=== PATIENT | male | born 2000 | race Caucasian/White ===

== ENCOUNTER 2022-01-10 10:32 | Observation (INO) | payer BC ==
[2022-01-10] MEDS ORDERED: SODIUM CHLORIDE 0.9% 500 ML 500 ML IV STA (11:11)
[2022-01-10] MEDS ORDERED: ASPIRIN 81 MG PO STA (11:11)
[2022-01-10 11:29] LABS: Basophils % (A) 0 %; Eosinophils # (A) 0.2 k/uL (0-0.7); Eosinophils % (A) 4 %; HCT 45.7 % (39.0-53.0); HGB 15.6 gm/dL (13.0-17.5); Lymphocytes # (A) 1.3 k/uL (1.0-4.8); Lymphocytes % (A) 27 %; MCH 32.6 pg (25.0-35.0); MCHC 34.2 g/dL (31.0-37.0); MCV 95.1 fL (80.0-100.0); Monocytes # (A) 0.3 k/uL (0-1.0); Monocytes % (A) 6 %; Neutrophils # (A) 2.9 k/uL (1.3-7.7); Neutrophils % (A) 61 %; Platelet Count 159 k/uL (150-450); RBC 4.81 m/uL (4.30-5.90); RDW 12.9 % (11.5-15.5); WBC 4.8 k/uL (3.8-10.6)
[2022-01-10 11:45] LABS: Partial Thromboplastin Time 24.3 sec (22.0-30.0); Prothrombin Time 10.6 sec (9.0-12.0)
[2022-01-10 11:53] LABS: ALT 38 U/L (4-49); AST 37 U/L (17-59); African American GFR (CKD) >90 (>60 ml/min/1.73 sqM); Albumin 4.6 g/dL (3.5-5.0); Alkaline Phosphatase 56 U/L (38-126); Anion Gap 8 mmol/L; Blood Urea Nitrogen 20 mg/dL (9-20); Carbon Dioxide 24 mmol/L (22-30); Chloride 107 mmol/L (98-107); Glucose 94 mg/dL (74-99); Non-African American GFR(CKD) >90 (>60 ml/min/1.73 sqM); Potassium 4.8 mmol/L (3.5-5.1); Sodium 139 mmol/L (137-145); Total Bilirubin 1.2 mg/dL (0.2-1.3); Total Protein 7.3 g/dL (6.3-8.2)
--- NOTE | 2022-01-10 12:15 | XR ---
EXAMINATION TYPE: XR chest 2V DATE OF EXAM: 01/10/2022 COMPARISON: NONE TECHNIQUE: PA and lateral views submitted. HISTORY: Dysrhythmia FINDINGS: The lungs are clear and there is no pneumothorax, pleural effusion, or focal pneumonia. Size is pro minent correlate clinically. No overt failure. IMPRESSION: 1. Question mild cardiomegaly correlate clinically.
[2022-01-10] MEDS ORDERED: NALOXONE 0.4 MG/ML 1 ML VIAL IV PRN (13:08)
[2022-01-10] MEDS ORDERED: NALOXONE 0.4 MG/ML 1 ML VIAL IVP PRN (13:11)
[2022-01-10] MEDS ORDERED: MELATONIN 3 MG TABLET PO PRN (13:11)
[2022-01-10] MEDS ORDERED: ACETAMINOPHEN TAB 325 MG TAB PO PRN (13:11)
[2022-01-10] MEDS ORDERED: HYDROcodone/APAP 5-325MG 1 EACH TAB PO PRN (13:11)
--- NOTE | 2022-01-10 13:44 | ED ---
General Adult HPI - General Chief complaint: Arrhythmia/Palpitations Stated complaint: low heart rate Time Seen by Provider: 01/10/22 10:50 Source: patient, RN notes reviewed, old records reviewed Mode of arrival: ambulatory Limitations: no limitations - History of Present Illness Initial comments: Patient is a 21-year-old male with past medical history that is unremarkable presents emergency department after being sent by his PCP. Ration was sent over concern for bradycardia and abnormal EKG. He states he purchased an [employer] watch approximately 5 months ago, and for the last month to month and a half he has been receiving notifications from the watch stating that he has bradycardia. He has been asymptomatic denying lightheadedness, chest pain, shortness of breath, abdominal pain, nausea, vomiting. No syncopal episodes. No change in vision. No symptoms at all. Patient did play multiple sports throughout high school. He is still active. He presents for further evaluation at this time. No family medical history of early cardiac . - Related Data Home Medications Medication Instructions Recorded Confirmed No Known Home Medications 01/10/22 01/10/22 Allergies Allergy/AdvReac Type Severity Reaction Status Date / Time peanut Allergy Unknown Verified 01/10/22 11:54 Review of Systems ROS Statement: Those systems with pertinent positive or pertinent negative responses have been documented in the HPI. Review of Systems: CONST: Denies fever EYES: Denies blurry vision ENT: Denies nasal congestion C/V: Denies Chest pain RESP: Denies shortness of breath GI: Denies abdominal pain : Denies dysuria SKIN: Denies rash. MSK: Denies joint pain. NEURO: Denies headache ROS Other: All systems not noted in ROS Statement are negative. Past Medical History Past Medical History: No Reported History History of Any Multi-Drug Resistant Organisms: None Reported Past Surgical History: No Surgical Hx Reported Past Psychological History: No Psychological Hx Reported Smoking Status: Vaper Past Alcohol Use History: Occasional Past Drug Use History: None Reported General Exam - General Exam Comments Initial Comments: General: Appears in no acute distress. HEAD: Normal with no signs of head trauma. EYES: PERRLA, EOMI, conjunctiva normal, no discharge. ENT: Hearing grossly intact, normal oropharynx. RESPIRATORY: Clear breath sounds bilaterally. No wheezes, rales, or rhonchi. C/V: Regular rate and rhythm. S1 and S2 auscultated, no edema, peripheral pulses 2+ and intact throughout ABD: Abd is soft, nontender, nondistended EXT: Normal range of motion, no obvious deformity SKIN: No rashes or lesions observed on exposed skin. NEURO: Alert and oriented 4. Limitations: no limitations Course Vital Signs 01/10/22 01/10/22 10:36 14:25 Temperature 98.2 F Pulse Rate 40 L 62 Respiratory 18 18 Rate Blood Pressure 144/67 131/74 O2 Sat by Pulse 100 98 Oximetry Medical Decision Making - Medical Decision Making Based on the patient's presentation and physical exam, I'm concerned for cardio pulmonary etiology for his current symptoms. We will obtain a repeat EKG in addition to chest x-ray and basic laboratory studies including troponin. He was in agreement this plan. Chest x-ray showed questionable mild cardiomegaly. Laboratory studies were r emarkable for an indeterminate troponin. Remainder the labs are unremarkable. EKG did show frequent PVCs as well as morphology consistent with possible left bundle branch block of unknown age. No obvious ST segment or T-wave abnormalities. I spoke with the patient regarding his findings and would like to admit him to the hospital for further workup. He was in agreement this plan. I did speak with cardiology over the phone, the PA, who accepted the patient as a consult. Was in agreement this plan. I spoke with the admitting team under KERI Ashford who accepted the patient to [facility] group in stable condition. Echo was ordered. Troponins will be trended. - Lab Data Result diagrams: 01/10/22 11:15 01/10/22 11:15 Lab Results 01/10/22 01/10/22 01/10/22 Range/Units 11:15 11:15 11:15 WBC 4.8 (3.8-10.6) k/uL RBC 4.81 (4.30-5.90) m/uL Hgb 15.6 (13.0-17.5) gm/dL Hct 45.7 (39.0-53.0) % MCV 95.1 (80.0-100.0) fL MCH 32.6 (25.0-35.0) pg MCHC 34.2 (31.0-37.0) g/dL RDW 12.9 (11.5-15.5) % Plt Count 159 (150-450) k/uL MPV 8.0 Neutrophils % 61 % Lymphocytes % 27 % Monocytes % 6 % Eosinophils % 4 % Basophils % 0 % Neutrophils # 2.9 (1.3-7.7) k/uL Lymphocytes # 1.3 (1.0-4.8) k/uL Monocytes # 0.3 (0-1.0) k/uL Eosinophils # 0.2 (0-0.7) k/uL Basophils # 0.0 (0-0.2) k/uL PT 10.6 (9.0-12.0) sec INR 1.0 (<1.2) APTT 24.3 (22.0-30.0) sec Sodium 139 (137-145) mmol/L Potassium 4.8 (3.5-5.1) mmol/L Chloride 107 (98-107) mmol/L Carbon Dioxide 24 (22-30) mmol/L Anion Gap 8 mmol/L BUN 20 (9-20) mg/dL Creatinine 1.04 (0.66-1.25) mg/dL Est GFR (CKD-EPI)AfAm >90 (>60 ml/min/1.73 sqM) Est GFR (CKD-EPI)NonAf >90 (>60 ml/min/1.73 sqM) Glucose 94 (74-99) mg/dL Calcium 9.0 (8.4-10.2) mg/dL Magnesium 2.0 (1.6-2.3) mg/dL Total Bilirubin 1.2 (0.2-1.3) mg/dL AST 37 (17-59) U/L ALT 38 (4-49) U/L Alkaline Phosphatase 56 (38-126) U/L Troponin I (0.000-0.034) ng/mL Total Protein 7.3 (6.3-8.2) g/dL Albumin 4.6 (3.5-5.0) g/dL TSH 2.510 (0.465-4.680) mIU/L /01/26 Range/Units 11:15 WBC (3.8-10.6) k/uL RBC (4.30-5.90) m/uL Hgb (13.0-17.5) gm/dL Hct (39.0-53.0) % MCV (80.0-100.0) fL MCH (25.0-35.0) pg MCHC (31.0-37.0) g/dL RDW (11.5-15.5) % Plt Count (150-450) k/uL MPV Neutrophils % % Lymphocytes % % Monocytes % % Eosinophils % % Basophils % % Neutrophils # (1.3-7.7) k/uL Lymphocytes # (1.0-4.8) k/uL Monocytes # (0-1.0) k/uL Eosinophils # (0-0.7) k/uL Basophils # (0-0.2) k/uL PT (9.0-12.0) sec INR (<1.2) APTT (22.0-30.0) sec Sodium (137-145) mmol/L Potassium (3.5-5.1) mmol/L Chloride (98-107) mmol/L Carbon Dioxide (22-30) mmol/L Anion Gap mmol/L BUN (9-20) mg/dL Creatinine (0.66-1.25) mg/dL Est GFR (CKD-EPI)AfAm (>60 ml/min/1.73 sqM) Est GFR (CKD-EPI)NonAf (>60 ml/min/1.73 sqM) Glucose (74-99) mg/dL Calcium (8.4-10.2) mg/dL Magnesium (1.6-2.3) mg/dL Total Bilirubin (0.2-1.3) mg/dL AST (17-59) U/L ALT (4-49) U/L Alkaline Phosphatase (38-126) U/L Troponin I <0.012 (0.000-0.034) ng/mL Total Protein (6.3-8.2) g/dL Albumin (3.5-5.0) g/dL TSH (0.465-4.680) mIU/L - EKG Data -: EKG Interpreted by Me EKG Comments: 12-lead Electrocardiogram Interpretation Note EKG was reviewed and interpreted by myself. 12-lead ECG performed at 1105 is interpreted by me as revealing sinus rhythm with frequent PVCs at a rate of 90 beats per minute. Prospect is normal. MO interval is 151 ms, QRS duration is 90 ms, QTc is 416 ms.. There is J-point elevation in leads V2 and V3 with what appears to be possible early left bundle branch block morphology. No ST segment abnormalities or T wave abnormalities.. R wave progression across the precordium is slightly delayed.. By my interpretation, this EKG shows concerning changes including PVCs as well as deep S waves. No obvious ischemic changes. Concerned for possible primary myopathy or acute cardiac issue. Disposition Clinical Impression: Acute electrocardiogram changes, PVCs (premature ventricular contractions) Disposition: ADMITTED IP TO THIS HOSP Condition: Stable Time of Disposition: 12:30
--- NOTE | 2022-01-10 15:16 | P.HPIM ---
History of Present Illness H&P Date: 01/10/22 History of Presenting Illness: Patient is a very pleasant 21-year-old male with a past medical history of nicotine dependence via vaping. He presented to the emergency department with a chief complaint of bradycardia. Patient reported approximately 5-6 months ago he got an [employer] watch and has been monitoring his heart rate. Patient states over the past month he has been receiving frequent notifications of a low heart rate. Patient reports that he went to his PCPs office today and was found to have a heart rate of 40 and sent to the emergency department for evaluation. Patient denies having any headache, lightheadedness, dizziness, chest pain, palpitations, shortness of breath, dyspnea with exertion or any other complaints. Patient does vaping, but denies any other drug or alcohol use. He denies any medical history and denies any family history of sudden cardiac before the age of 50. Pt reports that he is very athletic and plays softball 5 days per week. He denies any vitamin or supplement use. In the emergency department patient underwent full evaluation. He was again found to have a heart rate of 40. At that time an EKG was completed revealing normal sinus rhythm at 90 bpm with frequent PVCs. CBC, coags, and CMP were unremarkable. Troponin was negative at less than 0.012 and TSH normal findings at 2.510. Chest x-ray revealing questionable mild cardiomegaly. Patient was admitted under our services with consultation to cardiology. Review of systems: Pertinent positives and negatives as discussed in HPI, a complete review of systems was performed and all other systems are negative. Physical exam: Vital signs reviewed and stable. General: Nontoxic, no distress and appears stated age. Derm: Skin warm and dry, normal coloration for ethnicity. Head: Atraumatic, normocephalic and symmetric. Eyes: EOMs intact, no lid lag, and anicteric sclera Mouth: no lip lesions, mucus membranes moist Cardiovascular: regular rate and rhythm with normal S1S2, no murmur, positive posterior tibial pulses bilaterally, and cap refill < 2 seconds. Lungs: Respirations even, regular, and unlabored on room air. Lungs CTA bilaterally, no rhonchi, no rales, no wheezing, and no accessory muscle usage. Abdominal: soft, nontender to palpation, no guarding, no appreciable organomegaly Ext: ROM intact. No gross muscle atrophy, no edema, no contractures Neuro: Speech clear, face symmetrical and CN II-XII grossly intact with no noted focal neuro deficits Psych: Alert and oriented to person, place, time, and situation. Appropriate and pleasant affect. Assessment and Plan of Care: Asymptomatic bradycardia -EKG was completed revealing normal sinus rhythm at 90 bpm with very frequent PVCs. -Chest x-ray revealing questionable mild cardiomegaly. -Cardiology consult, appreciate further recommendations -Telemetry monitoring -Cardiac diet -Troponin less than 0.012 and TSH normal findings at 2.510. -Echocardiogram to be completed The patient is admitted with an anticipated less than 2 midnight stay for evaluation of asymptomatic bradycardia CODE STATUS: Full code DVT prophylaxis: Lovenox Discussed with: Patient and RN Anticipated discharge date: Tomorrow Anticipated discharge place: Home A total of 40 minutes was spent on the care of this complex patient more than 50% of the time was spent in counseling and care coordination. Past Medical History Past Medical History: No Reported History History of Any Multi-Drug Resistant Organisms: None Reported Past Surgical History: No Surgical Hx Reported Past Psychological History: No Psychological Hx Reported Smoking Status: Vaper Past Alcohol Use History: Occasional Past Drug Use History: None Reported Medications and Allergies Home Medications Medication Instructions Recorded Confirmed Type No Known Home Medications 01/10/22 01/10/22 History Allergies Allergy/AdvReac Type Severity Reaction Status Date / Time peanut Allergy Unknown Verified 01/10/22 11:54 Physical Exam Vitals: Vital Signs Temp Pulse Resp BP Pulse Ox 01/10/22 10:36 98.2 F 40 L 18 144/67 100 Intake and Output 01/09/22 01/10/22 01/10/22 22:59 06:59 14:59 Other: Weight 108.862 kg Results CBC & Chem 7: 01/10/22 11:15 01/10/22 11:15
[2022-01-11 04:59] VITALS: RESP 16
[2022-01-11 08:10] LABS: African American GFR (CKD) >90 (>60 ml/min/1.73 sqM); Anion Gap 6 mmol/L; Blood Urea Nitrogen 19 mg/dL (9-20); Carbon Dioxide 28 mmol/L (22-30); Chloride 105 mmol/L (98-107); Glucose 89 mg/dL (74-99); Magnesium 2.2 mg/dL (1.6-2.3); Non-African American GFR(CKD) 86 (>60 ml/min/1.73 sqM); Potassium 4.4 mmol/L (3.5-5.1); Sodium 139 mmol/L (137-145)
[2022-01-11 08:41] LABS: Basophils % (A) 1 %; Eosinophils # (A) 0.2 k/uL (0-0.7); Eosinophils % (A) 4 %; HCT 45.9 % (39.0-53.0); HGB 15.8 gm/dL (13.0-17.5); Lymphocytes # (A) 2.2 k/uL (1.0-4.8); Lymphocytes % (A) 37 %; MCH 32.9 pg (25.0-35.0); MCHC 34.4 g/dL (31.0-37.0); MCV 95.7 fL (80.0-100.0); Mean Platelet Volume 8.3; Monocytes # (A) 0.3 k/uL (0-1.0); Monocytes % (A) 5 %; Neutrophils # (A) 3.1 k/uL (1.3-7.7); Neutrophils % (A) 51 %; Platelet Count 153 k/uL (150-450)
[2022-01-11] MEDS ORDERED: ENOXAPARIN 40 MG/0.4 ML SYRINGE SQ SCH (09:00)
--- NOTE | 2022-01-11 09:40 | CA ---
Transthoracic Echo Report Name: Rishi Gonsales Age: 21 Gender: M : 2000 Exam Date: 01/10/2022 14:30 Exam Location: [place] [facility] Ht (in): 75 Wt (lb): 240 Ordering Physician: Dejon Moy Attending/Referring Phys: Diesel Power Mechanic Carline De La Torre RDCS Procedure CPT: Indications: bradycardia, cardiomegally Cardiac Hx: Technical Quality: Fair Contrast 1: Total Dose (mL): Contrast 2: Total Dose (mL): MEASUREMENTS (Male / Female) Normal Values 2D ECHO LV Diastolic Diameter PLAX 5.4 cm 4.2 - 5.9 / 3.9 - 5.3 cm LV Systolic Diameter PLAX 4.0 cm IVS Diastolic Thickness 1.2 cm 0.6 - 1.0 / 0.6 - 0.9 cm LVPW Diastolic Thickness 1.3 cm 0.6 - 1.0 / 0.6 - 0.9 cm LV Relative Wall Thickness 0.5 RV Internal Dim ED PLAX 2.6 cm LA Volume 48.6 cm??? 18 - 58 / 22 - 52 cm??? M-MODE Aortic Root Diameter MM 3.1 cm LA Systolic Diameter MM 3.8 cm LA Ao Ratio MM 1.2 AV Cusp Separation MM 2.4 cm DOPPLER AV Peak Velocity 165.4 cm/s AV Peak Gradient 10.9 mmHg LVOT Peak Velocity 84.4 cm/s LVOT Peak Gradient 2.8 mmHg MV Area PHT 2.0 cm??? Mitral E Point Velocity 73.8 cm/s Mitral A Point Velocity 52.7 cm/s Mitral E to A Ratio 1.4 MV Deceleration Time 378.8 ms TR Peak Velocity 233.9 cm/s TR Peak Gradient 21.9 mmHg Right Ventricular Systolic Press 26.3 mmHg FINDINGS Left Ventricle Mildly increased septal wall thickness left ventricular diastolic filling pattern. Left ventricular cavity size normal. No obvious regional wall motion abnormalities. Left ventricular ejection fraction is estimated at 50-55 %. Right Ventricle Normal right ventricular size and function. Right ventricular systolic pressure within normal limits. Right Atrium Normal right atrial size. Left Atrium Normal left atrial size. No evidence for an atrial septal defect. Mitral Valve Structurally normal mitral valve. No mitral stenosis, regurgitation or prolapse. Aortic Valve Trileaflet aortic valve. No aortic valve stenosis or regurgitation. Tricuspid Valve Structurally normal tricuspid valve. Mild tricuspid regurgitation. Pulmonic Valve Trace pulmonic regurgitation. Pericardium No pericardial effusion. Aorta Normal size aortic root and proximal ascending aorta. CONCLUSIONS #1. Left ventricular size is normal. The ejection fraction about 50 to 55%. #2. Mild septal hypertrophy. #3. Valvular function appears to be normal except mild tricuspid regurgitation Previewed by: Dr. Linus Gallagher MD (Electronically Signed) Final Date: 11 January 2022 09:39
--- NOTE | 2022-01-11 10:31 | P.CRDCN ---
History of Present Illness History of present illness: HISTORY OF PRESENTING ILLNESS This is a pleasant 21-year-old male with no significant past medical history. He does not follow with a ostomy nurse. We have been asked to see in consultation for abnormal EKG, frequent PVCs. Patient presents to the emergency department from his primary care physician's office due to abnormal EKG, frequent PVCs and bradycardia with heart rate in the 40s. Patient states that he's been having notifications from his output watch that he is bradycardic for about 1 month. He underwent evaluation by his PCP. EKG was performed and recommend patient be evaluated in the emergency department due to bradycardia. Patient denies any chest pain, shortness of breath, lightheadedness, dizziness, syncope or near syncope, headache, dyspnea on exertion. Patient has no symptoms. Patient denies any history of cardiac disease. Denies any family history of sudden cardiac or any family history of cardiac disease. He does vape. He denies any use of tobacco, marijuana, illicit drug use. Denies any new medications, OTC medications, supplements, vitamins. Denies alcohol use. He is athletic plays softball about 5 days per week. He has never loss consciousn ess, never has been symptomatic. DIAGNOSTICS EKG reveals sinus rhythm, heart rate 90, frequent premature ventricular complexes Telemetry tracings indicate sinus rhythm with frequent PVCs, bigeminy and trigeminy Chest xray no acute cardio pulmonary process Echocardiogram: EF 5055 percent, no significant wall motion abnormalities, mild septal hypertrophy, valvular function appears to be normal. Mild tricuspid regurgitation Laboratory reviewed, CBC unremarkable, sodium 139, potassium 4.8, BUN 20, serum creatinine 1.04, troponin negative, magnesium 2.0, liver enzymes within normal limits, TSH within normal limits. He denies any current daily or PRN medications at home. REVIEW OF SYSTEMS At the time of my exam: CONSTITUTIONAL: Denies fever or chills. CARDIOVASCULAR: Denies chest pain, shortness of breath, orthopnea, PND or palpitations. RESPIRATORY: Denies cough. GASTROINTESTINAL: Denies abdominal pain, diarrhea, constipation, nausea or vomiting. MUSCULOSKELETAL: Denies myalgias. NEUROLOGIC: Denies numbness, tingling, headacbe or weakness. ENDOCRINE: Denies fatigue, weight change, polydipsia or polyurina. GENITOURINARY: Denies burning, hematuria or urgency with micturation. HEMATOLOGIC: Denies history of anemia or bleeding. PHYSICAL EXAMINATION Blood pressure 125/58, heart 83, afebrile, oxygen saturations 99% on room air CONSTITUTIONAL: No apparent distress. HEENT: Head is normocephalic. Pupils are equal, round. Sclerae anicteric. Mucous membranes of the mouth are moist. No JVD. No carotid bruit. CHEST EXAMINATION: Lungs are clear to auscultation. No chest wall tenderness is noted on palpation or with deep breathing. HEART EXAMINATION: Regular rate and rhythm. S1, S2 heard. No murmurs, gallops or rub. ABDOMEN: Soft, nontender. Positive bowel sounds. EXTREMITIES: 2+ peripheral pulses, no lower extremity edema and no calf tenderness. NEUROLOGIC EXAMINATION: Patient is awake, alert and oriented x3. ASSESSMENT Frequent premature ventricular complexes, asymptomatic PLAN EKG, telemetry and echocardiogram reviewed as noted above. Patient can be discharged from a cardiology perspective, do not recommend event monitor or adding medications at this time. Follow up outpatient with Dr. Marie Nurse practitioner note has been reviewed by physician. Signing provider agrees with the documented findings, assessment, and plan of care. Past Medical History Past Medical History: No Reported History History of Any Multi-Drug Resistant Organisms: None Reported Past Surgical History: No Surgical Hx Reported Past Psychological History: No Psychological Hx Reported Smoking Status: Vaper Past Alcohol Use History: Occasional Past Drug Use History: None Reported Medications and Allergies Home Medications Medication Instructions Recorded Confirmed Type No Known Home Medications 01/10/22 01/10/22 History Allergies Allergy/AdvReac Type Severity Reaction Status Date / Time peanut Allergy Unknown Verified 01/10/22 11:54 Physical Exam Vitals: Vital Signs Temp Pulse Resp BP Pulse Ox 01/10/22 10:36 98.2 F 40 L 18 144/67 100 Intake and Output 01/09/22 01/10/22 01/10/22 22:59 06:59 14:59 Other: Weight 108.862 kg Results 01/11/22 07:12 01/11/22 07:12 Cardiac Enzymes 01/10/22 01/10/22 Range/Units 11:15 11:15 AST 37 (17-59) U/L Troponin I <0.012 (0.000-0.034) ng/mL Coagulation 01/10/22 Range/Units 11:15 PT 10.6 (9.0-12.0) sec APTT 24.3 (22.0-30.0) sec CBC 01/10/22 Range/Units 11:15 WBC 4.8 (3.8-10.6) k/uL RBC 4.81 (4.30-5.90) m/uL Hgb 15.6 (13.0-17.5) gm/dL Hct 45.7 (39.0-53.0) % Plt Count 159 (150-450) k/uL Comprehensive Metabolic Panel 01/10/22 Range/Units 11:15 Sodium 139 (137-145) mmol/L Potassium 4.8 (3.5-5.1) mmol/L Chloride 107 (98-107) mmol/L Carbon Dioxide 24 (22-30) mmol/L BUN 20 (9-20) mg/dL Creatinine 1.04 (0.66-1.25) mg/dL Glucose 94 (74-99) mg/dL Calcium 9.0 (8.4-10.2) mg/dL AST 37 (17-59) U/L ALT 38 (4-49) U/L Alkaline Phosphatase 56 (38-126) U/L Total Protein 7.3 (6.3-8.2) g/dL Albumin 4.6 (3.5-5.0) g/dL Current Medications Generic Name Dose Route Start Last Admin Trade Name Freq PRN Reason Stop Dose Admin Acetaminophen 650 mg 01/10/22 13:11 Acetaminophen Tab 325 Mg Tab PO Q6HR PRN Mild Pain or Fever > 100.5 Hydrocodone Bitart/Acetaminophen 1 each 01/10/22 13:11 Hydrocodone/Apap 5-325mg 1 Each Tab PO Q4HR PRN Moderate Pain Enoxaparin Sodium 40 mg 01/11/22 09:00 Enoxaparin 40 Mg/0.4 Ml Syringe SQ DAILY BREE Melatonin 3 mg 01/10/22 13:11 Melatonin 3 Mg Tablet PO HS PRN Insomnia Naloxone HCl 0.2 mg 01/10/22 13:11 Naloxone 0.4 Mg/Ml 1 Ml Vial IVP Q2M PRN Opioid Reversal Intake and Output 01/09/22 01/10/22 01/10/22 22:59 06:59 14:59 Other: Weight 108.862 kg Patient Weight 01/11/22 06:59 Weight 108.862 kg 01/10/22 11:15 01/10/22 11:15
[2022-01-11 10:36] VITALS: BP 119/58; PULSE 80; TEMP 98.1
--- NOTE | 2022-01-11 10:46 | P.PN ---
Progress Note - Text Electrophysiology assessment. Please see full dictation maneuvers practitioner 21-year-old male patient who noticed an irregular heartbeat on his phone He was sent to the hospital from the PCPs office Is asymptomatic He is experiencing frequent RVOT PVCs without any nonsustained ventricular tachycardia No syncope 2-D echo does not show any RV enlargement Twelve-lead EKG does not show any evidence for epsilon waves He is a septal RVOT PVCs Plan Discharge home today Follow-up with Sonali Galicia/Dr. Marie next week Response of PVCs to exercise and be evaluated as an outpatient PVC burden on a 24-hour Holter monitor will be evaluated Thereafter decision regarding EP study and radiofrequency ablation No medications for now Patient may go home
--- NOTE | 2022-01-11 11:30 | P.DS ---
Providers Date of admission: 01/10/22 13:08 Expected date of discharge: 01/11/22 Attending physician: Demi Apodaca DO Consults: 01/10/22 13:11 Consult Physician Routine Consulting Provider: Cardiology Zay Consult Reason/Comments: Bradycardia, abnormal EKG, cardiomegally Do you want consulting provider notified?: Yes 01/10/22 13:34 Consult Physician Routine Consulting Provider: Cardiology Zay Consult Reason/Comments: abdnormal ekg, frequent PVC's Do you want consulting provider notified?: Yes Primary care physician: Liam Jacobs MD Hospital Course: Discharge Diagnosis: Asymptomatic bradycardia with frequent PVCs -EKG was completed revealing normal sinus rhythm at 90 bpm with very frequent PVCs. -Chest x-ray revealing questionable mild cardiomegaly. -Cardiology evaluated, recommended outpatient follow-up in their office with [employer] lo[employer] control, Dr. Marie, as response PVCs to exercise will need to be evaluated as an outpatient likely with 24-hour Holter monitoring. -Telemetry monitoring -Cardiac diet -Troponin less than 0.012 and TSH normal findings at 2.510. -Echocardiogram to be completed Hospital Course: Patient is a very pleasant 21-year-old male with a past medical history of nicotine dependence via vaping. He presented to the emergency department with a chief complaint of bradycardia. Patient reported approximately 5-6 months ago he got an apple watch and has been monitoring his heart rate. Patient states over the past month he has been receiving frequent notifications of a low heart rate. Patient reports that he went to his PCPs office today and was found to have a heart rate of 40 and sent to the emergency department for evaluation. Patient denies having any headache, lightheadedness, dizziness, chest pain, palpitations, shortness of breath, dyspnea with exertion or any other complaints. Patient does vaping, but denies any other drug or alcohol use. He denies any medical history and denies any family history of sudden cardiac before the age of 50. Pt reports that he is very athletic and plays softball 5 days per week. He denies any vitamin or supplement use. In the emergency department patient underwent full evaluation. He was again found to have a heart rate of 40. At that time an EKG was completed revealing normal sinus rhythm at 90 bpm with frequent PVCs. CBC, coags, and CMP were unremarkable. Troponin was negative at less than 0.012 and TSH normal findings at 2.510. Chest x-ray revealing questionable mild cardiomegaly. Patient was admitted under our services with consultation to cardiology. Patient monitored overnight, he remains in sinus rhythm with frequent PVCs. Patient remains asymptomatic. Echocardiogram completed. Revealing a normal EF of 50-55% with mild septal hypertrophy and mild tricuspid regurgitation. Cardiology evaluated, recommended outpatient follow-up in their office with [employer] maker lo[employer] control, Dr. Marie, as response PVCs to exercise will need to be evaluated as an outpatient likely with 24-hour Holter monitoring. Patient medically stable for discharge no new medications started at this time. Patient to follow up outpatient with cardiology in 1 week with PCP in 1-2 days. Physical exam: Vital signs reviewed and stable. General: Nontoxic, no distress and appears stated age. Derm: Skin warm and dry, normal coloration for ethnicity. Head: Atraumatic, normocephalic and symmetric. Eyes: EOMs intact, no lid lag, and anicteric sclera Mouth: no lip lesions, mucus membranes moist Cardiovascular Irregular rhythm, normal S1S2, no murmur, positive posterior tibial pulses bilaterally, and cap refill < 2 seconds. Lungs: Respirations even, regular, and unlabored on room air. Lungs CTA bilaterally, no rhonchi, no rales, no wheezing, and no accessory muscle usage. Abdominal: soft, nontender to palpation, no guarding, no appreciable organomegaly Ext: ROM intact. No gross muscle atrophy, no edema, no contractures Neuro: Speech clear, face symmetrical and CN II-XII grossly intact with no noted focal neuro deficits Psych: Alert and oriented to person, place, time, and situation. Appropriate and pleasant affect. A total of 34 minutes of time were spent preparing this complex discharge summary. Pt was discharged on 01/11/22 at 9:56 AM. I reviewed the documentation as provided by the WALESKA above, who is the original author of this note. I agree with the documented assessment and plan, with the following changes: none Patient Condition at Discharge: Stable Plan - Discharge Summary Discharge Rx Participant: Yes New Discharge Prescriptions: No Action No Known Home Medications Discharge Medication List No Known Home Medications 01/10/22 [History] Follow up Appointment(s)/Referral(s): Eugenio Marie MD [STAFF PHYSICIAN] - 2 Weeks (Office to call you with appointment date and time) Liam Jacobs MD [Primary Care Provider] - 1-2 days (Call to set up follow up appointment. ) Activity/Diet/Wound Care/Special Instructions: Activity: Continue with normal daily activities, no restrictions. Diet: Heart healthy diet Special Instructions: Please remember to keep all of your doctor's appointments and follow-up as needed. Thank you for allowing us to participate in your care, it was truly a pleasure having you for our patient!!! Discharge Disposition: HOME SELF-CARE
[2022-01-11 15:48] LABS: Chol/HDL Ratio 3.92 Ratio; LDL Cholesterol,Calculated 90.3 mg/dL (0.0-131.0); VLDL Calculation 14.68 mg/dL (5.00-40.00)
== END 2022-01-11 11:46 | disposition home or self-care (01) ==
LOC: EC 10:32 → 3SCARD 13:08
PROVIDERS: ADMIT Internal Medicine; ATTEND Internal Medicine
DX: I49.3 Ventricular premature depolarization (principal); F17.290 Nicotine dependence, other tobacco product, uncomplicated; R00.8 Other abnormalities of heart beat; I07.1 Rheumatic tricuspid insufficiency; Z91.010 Allergy to peanuts
CPT/HCPCS: 99285; 36415; 93005; 93306; 80061; 80053; 80048; 83735 ×2; 84443; 84484; 85025 ×2; 85610; 85730; 71046; G0378 ×2